=== PATIENT | female | born 1995 | race Caucasian/White ===

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

== ENCOUNTER 2017-08-17 12:28 | Emergency (ER) | payer BC, OTHER ==
[~2017-08-17] VITALS: Ht 167.6 cm; Wt 88.5 kg
[~2017-08-17 12:28] MED LIST changes: +PREPLUS CA-FE1 EACH PO
[2017-08-17 12:29] VITALS: BP 134/84
[2017-08-17 13:18] LABS: BILIRUBIN NEGATIVE (NEGATIVE); BLOOD NEGATIVE (NEGATIVE); CLARITY CLEAR (CLEAR); COLOR YELLOW (YELLOW); GLUCOSE NEGATIVE (NEGATIVE); KETONE TRACE (NEGATIVE); LEUKO ESTERASE NEGATIVE (NEGATIVE); NITRITE NEGATIVE (NEGATIVE); SPECIFIC GRAVITY 1.015 (1.005-1.030)
[2017-08-17 13:30] LABS: BACTERIA 1+; WBC 21-30 wbc/hpf (0-5)
== END 2017-08-17 15:33 | disposition home or self-care (01) ==
LOC: ED 12:28
PROVIDERS: Nurse Practitioner Family
DX: Z00.8 Encounter for other general examination (principal); R03.0 Elevated blood-pressure reading, without diagnosis of hypertension; F17.200 Nicotine dependence, unspecified, uncomplicated

== ENCOUNTER 2018-10-16 03:46 | Emergency (ER) | payer BC, OTHER ==
[~2018-10-16] VITALS: Ht 167.6 cm; Wt 90.7 kg
[2018-10-16 03:47] VITALS: BP 149/93
[2018-10-16 04:29] LABS: HEMATOCRIT 32.1 % (37.0-47.0); HEMOGLOBIN 11.7 g/dl (12.0-16.0); MEAN CELL VOLUME 98.8 fl (81.0-99.0); MEAN CORPUSCULAR HGB CONC 36.4 g/dl (33.0-37.0); MEAN PLATELET VOLUME 9.3 fl (9.6-12.3); PLATELET COUNT AUTOMATED 235 10*3/uL (130-400); RED BLOOD COUNT 3.25 10*6/uL (4.10-5.10); RED CELL DISTRI WIDTH 19.9 % (0-14.5); WHITE BLOOD COUNT 13.3 10*3/uL (4.8-10.8)
[2018-10-16 04:41] LABS: BUN 7 mg/dl (7-24); CHLORIDE 108 mmol/L (98-107); CREATININE 0.91 mg/dL (0.55-1.02); POTASSIUM 4.2 mmol/L (3.5-5.1); SODIUM 138 mmol/L (136-145)
[2018-10-16] MEDS ORDERED: ULTRAM50 MG PO (04:55)
[2018-10-16] MEDS ORDERED: PREDNISONE10 MG PO (04:55)
[2018-10-16 04:57] LABS: ATYPICAL LYMPHS 13 % (0-0); PLATELET SUFFICIENCY NORMAL (NORMAL); TOTAL CELLS COUNTED 100 #CELLS
== END 2018-10-16 05:15 | disposition home or self-care (01) ==
LOC: ED 03:46
PROVIDERS: Emergency Medicine Emergency Medical Services
DX: B27.90 Infectious mononucleosis, unspecified without complication (principal); R13.10 Dysphagia, unspecified

== ENCOUNTER 2018-12-19 14:37 | Emergency (ER) | payer BC, OTHER ==
[~2018-12-19] VITALS: Ht 167.6 cm; Wt 92.5 kg
[~2018-12-19 14:37] MED LIST changes: +PREDNISONE10 MG PO; +ULTRAM50 MG PO
[2018-12-19 14:39] VITALS: BP 153/107
[2018-12-19 15:09] LABS: BILIRUBIN NEGATIVE (NEGATIVE); BLOOD NEGATIVE (NEGATIVE); CLARITY CLEAR (CLEAR); COLOR YELLOW (YELLOW); GLUCOSE NEGATIVE (NEGATIVE); KETONE NEGATIVE (NEGATIVE); LEUKO ESTERASE NEGATIVE (NEGATIVE); NITRITE NEGATIVE (NEGATIVE); SPECIFIC GRAVITY 1.015 (1.005-1.030); UROBILINOGEN 0.2 E.U./dl (0.2-1.0)
[2018-12-19 15:14] LABS: BACTERIA 2+; RBC 0-2 rbc/hpf (0-2)
[2018-12-19 15:15] LABS: MUCOUS TRACE
== END 2018-12-19 15:07 | disposition left against medical advice (07) ==
LOC: ED 14:37
PROVIDERS: Emergency Medicine
DX: R10.30 Lower abdominal pain, unspecified (principal); R35.0 Frequency of micturition; R11.0 Nausea; J45.909 Unspecified asthma, uncomplicated; Z32.02 Encounter for pregnancy test, result negative

== ENCOUNTER 2019-02-20 18:22 | Emergency (ER) | payer BC, OTHER ==
[~2019-02-20] VITALS: Ht 167.6 cm; Wt 90.7 kg
[2019-02-20 18:27] VITALS: BP 149/89
== END 2019-02-20 19:34 | disposition home or self-care (01) ==
LOC: ED 18:22
DX: J02.0 Streptococcal pharyngitis (principal); J45.909 Unspecified asthma, uncomplicated; F17.200 Nicotine dependence, unspecified, uncomplicated

== ENCOUNTER 2019-08-27 09:46 | Emergency (ER) | payer BC, OTHER ==
[~2019-08-27] VITALS: Ht 167.6 cm; Wt 90.7 kg
[2019-08-27 09:52] VITALS: BP 142/90
[2019-08-27 10:16] LABS: BASO # 0.1 10*3/uL (0.0-0.1); BASO % 0.8 % (0.0-1.0); EOS # 0.3 10*3/uL (0.0-0.4); EOS % 2.9 % (1.0-4.0); HEMATOCRIT 40.6 % (37.0-47.0); LYMPH # 2.9 10*3/uL (1.3-4.4); LYMPH % 24.5 % (27.0-41.0); MEAN CELL VOLUME 89.8 fl (81.0-99.0); MEAN CORPUSCULAR HGB 28.5 pg (27.0-31.0); MEAN CORPUSCULAR HGB CONC 31.8 g/dl (33.0-37.0); MEAN PLATELET VOLUME 9.2 fl (9.6-12.3); MONO % 8.5 % (3.0-9.0); NEUT # 7.4 10*3/uL (2.3-7.9); PLATELET COUNT AUTOMATED 336 10*3/uL (130-400); RED BLOOD COUNT 4.52 10*6/uL (4.10-5.10); RED CELL DISTRI WIDTH 13.2 % (0-14.5); WHITE BLOOD COUNT 11.8 10*3/uL (4.8-10.8)
[2019-08-27 10:35] LABS: ALBUMIN 3.9 gm/dl (3.1-4.5); ALKALINE PHOSPHATASE 55 U/L (45-117); BUN 10 mg/dl (7-24); CHLORIDE 111 mmol/L (98-107); CREATININE 0.82 mg/dL (0.55-1.02); POTASSIUM 3.9 mmol/L (3.5-5.1); SGOT/AST 27 IU/L (3-35); SGPT/ALT 27 U/L (12-78); SODIUM 139 mmol/L (136-145); TOTAL PROTEIN 8.1 gm/dL (6.4-8.2)
[2019-08-27 10:37] LABS: B-hCG (QUALITATIVE) NEGATIVE (NEGATIVE)
[2019-08-27] MEDS ORDERED: ZYRTEC10 M2 PO (10:57)
[2019-08-27] MEDS ORDERED: Motrin,Rufen800 MG PO (10:57)
[2019-08-27] MEDS ORDERED: AMOXICILLIN500 M2 PO (10:57)
== END 2019-08-27 10:56 | disposition home or self-care (01) ==
LOC: ED 09:46
PROVIDERS: Physician Assistant
DX: H66.91 Otitis media, unspecified, right ear (principal); J45.909 Unspecified asthma, uncomplicated

== ENCOUNTER 2019-10-06 16:22 | Emergency (ER) | payer BC, OTHER ==
[~2019-10-06] VITALS: Ht 170.1 cm; Wt 90.7 kg
[~2019-10-06 16:22] MED LIST changes: +AMOXICILLIN500 M2 PO; +Motrin,Rufen800 MG PO; +ZYRTEC10 M2 PO
[2019-10-06 16:26] VITALS: BP 151/79
[2019-10-06] MEDS ORDERED: PREDNISONE20 M1 PO (16:41)
[2019-10-06] MEDS ORDERED: AUGMENTIN 875875 MG PO (16:41)
== END 2019-10-06 17:08 | disposition home or self-care (01) ==
LOC: ED 16:22
DX: J02.0 Streptococcal pharyngitis (principal)

== ENCOUNTER → 2020-01-23 | Outpatient (CLI) | payer BC, OTHER ==
[~2020-01-23] MED LIST changes: +AUGMENTIN 875875 MG PO; +PREDNISONE20 M1 PO
== END | disposition home or self-care (01) ==
LOC: US 14:00
PROVIDERS: ATTEND Nurse Practitioner Women's Health
DX: Z34.82 Encounter for supervision of other normal pregnancy, second trimester (principal); Z3A.14 14 weeks gestation of pregnancy

== ENCOUNTER → 2020-03-06 | Outpatient (CLI) | payer BC, OTHER | END | disposition home or self-care (01) | LOC: US 12:57 | PROVIDERS: ATTEND Obstetrics & Gynecology | DX: Z34.82 Encounter for supervision of other normal pregnancy, second trimester (principal); Z3A.20 20 weeks gestation of pregnancy ==

== ENCOUNTER 2020-04-18 04:03 | Emergency (ER) | payer BC, OTHER ==
[~2020-04-18] VITALS: Ht 170.1 cm; Wt 90.7 kg
[2020-04-18 04:12] VITALS: BP 141/87
== END 2020-04-18 04:59 | disposition home or self-care (01) ==
LOC: ED 04:03
DX: O26.892 Other specified pregnancy related conditions, second trimester (principal); R10.2 Pelvic and perineal pain; R10.30 Lower abdominal pain, unspecified; R42 Dizziness and giddiness; O99.512 Diseases of the respiratory system complicating pregnancy, second trimester; J45.909 Unspecified asthma, uncomplicated; Z3A.24 24 weeks gestation of pregnancy; Z79.2 Long term (current) use of antibiotics; Z79.899 Other long term (current) drug therapy; Z98.890 Other specified postprocedural states

== ENCOUNTER → 2020-10-24 | Outpatient (CLI) | payer BC, OTHER | END | disposition home or self-care (01) | LOC: COVID19 15:30 | PROVIDERS: ATTEND Internal Medicine | DX: U07.1 COVID-19 (principal) ==

== ENCOUNTER 2021-08-15 10:30 | Emergency (ER) | payer BC, OTHER ==
[~2021-08-15] VITALS: Ht 170.1 cm; Wt 90.7 kg
[2021-08-15 10:34] VITALS: BP 145/90
[2021-08-15 11:25] LABS: BILIRUBIN Negative (Negative); BLOOD Negative (Negative); CLARITY Turbid (Clear); COLOR Yellow (Yellow); GLUCOSE Negative (Negative); KETONE Trace (Negative); LEUKO ESTERASE Trace (Negative); NITRITE Negative (Negative); PH 5.5 (4.5-8.0); SPECIFIC GRAVITY >= 1.030 (1.001-1.030)
[2021-08-15 11:47] LABS: EPITHELIAL CELLS 21-30
[2021-08-15 11:48] LABS: BACTERIA 3+; RBC 0-2 rbc/hpf (0-2)
[2021-08-15] MEDS ORDERED: CYCLOBENZAPRINE10 MG PO (14:20)
[2021-08-15] MEDS ORDERED: PREDNISONE50 MG PO (14:20)
== END 2021-08-15 14:27 | disposition home or self-care (01) ==
LOC: ED 10:30
PROVIDERS: Family Medicine
DX: M54.9 Dorsalgia, unspecified (principal); F17.200 Nicotine dependence, unspecified, uncomplicated